=== PATIENT | female | born 1955 | race Caucasian/White ===

== ENCOUNTER 2023-11-13 07:01 | Inpatient (IN) | payer MEDICARE ==
[2023-11-08 12:30] LABS: BILIRUBIN,URINE NEGATIVE (Neg); CLARITY,URINE CLOUDY (Clear); COLOR,URINE YELLOW (Yellow); GLUCOSE, URINE NEGATIVE (Neg); KETONES,URINE NEGATIVE (Neg); LEUKOCYTE ESTERASE ,URINE TRACE (Neg); NITRITES, URINE NEGATIVE (Neg); OCCULT BLOOD,URINE NEGATIVE (Neg); PROTEIN,URINE NEGATIVE (Neg); UROBILINOGEN,URINE 0.2 E.U/dL (0.2-1.0)
[2023-11-08 12:31] LABS: BASOPHILS % (AUTO) 0.4 % (0-1); EOSINOPHILS # (AUTO) 0.2 X10'3 (0-0.9); EOSINOPHILS % (AUTO) 3.3 % (0-6); LYMPHOCYTES # (AUTO) 1.9 X10'3 (1.1-4.8); LYMPHOCYTES % (AUTO) 33.1 % (21-51); MEAN CORPUSCULAR HEMOGLOBIN 31.1 PG (27.0-31.0); MEAN CORPUSCULAR HGB CONC 33.5 g/dL (33.0-36.5); MEAN CORPUSCULAR VOLUME 92.9 FL (78-98); MEAN PLATELET VOLUME 7.6 FL (7.4-10.4); MONOCYTES # (AUTO) 0.4 X10'3 (0-0.9); MONOCYTES % (AUTO) 6.4 % (2-12); NEUTROPHILS # (AUTO) 3.3 X10'3 (1.8-7.7); NEUTROPHILS % (AUTO) 56.8 % (42-75); PRE OP HEMATOCRIT 36.2 % (35.0-45.0); PRE OP HEMOGLOBIN 12.1 g/dL (12.0-16.0); PRE OP PLATELET COUNT 206 X10'3 (140-440); PRE OP WHITE BLOOD COUNT 5.8 10'3 (4.8-10.8); RED CELL DISTRIBUTION WIDTH 14.6 % (11.5-14.5)
[2023-11-08 12:38] LABS: UA COLLECTION TYPE CLN CATCH MIDSTREAM
[2023-11-08 12:42] LABS: SQUAMOUS EPITHELIAL CELL,UR MODERATE /LPF (FEW)
[2023-11-08 12:43] LABS: MUCUS STRANDS FEW /LPF (Neg)
[2023-11-08 12:44] LABS: BACTERIA,URINE 1+ /HPF (Neg)
[2023-11-08 12:45] LABS: ALBUMIN 3.6 G/DL (3.4-5.0); ALBUMIN/GLOBULIN RATIO 0.9 (1.1-1.5); ALKALINE PHOSPHATASE 95 IU/L (46-116); BLOOD UREA NITROGEN 15 MG/DL (7-18); BUN/CREATININE RATIO 14.3 (10.0-20.0); CHLORIDE 109 MMOL/L (99-107); CREATININE 1.05 MG/DL (0.40-0.90); PRE OP ALT 17 U/L (30-65); PRE OP ANION GAP 6 (8-16); PRE OP AST 17 U/L (10-37); PRE OP BILIRUB, TOTAL 0.4 MG/DL (0.0-1.0); PRE OP GLUCOSE 107 MG/DL (70-104); PRE OP POTASSIUM 4.1 MMOL/L (3.4-5.1); PRE OP SODIUM 144 MMOL/L (135-145); TOTAL PROTEIN 7.5 G/DL (6.4-8.2); eGFR 52 ML/MIN
[2023-11-08 13:00] LABS: HEMOGLOBIN A1C 6.3 % (4.5-6.2)
[2023-11-08 14:30] LABS: PRE OP PROTIME 10.6 SECONDS (9.0-12.0)
[~2023-11-13] VITALS: Ht 167.6 cm; Wt 73.2 kg
[2023-11-13] VITALS (23 sets, daily range): BP systolic 120–167; BP diastolic 59–83; PULSE 50–89; RESP 13–18; TEMP 97.2–97.3; O2SAT 91–99
[2023-11-13] MEDS: cefazolin 2gm/D5W 100mL 100 ML IV ONE (05:30)
[2023-11-13] MEDS: tranexamic acid inj. 1,000 MG in normal saline IV soln 100ML IV ONE (05:30)
[2023-11-13] MEDS: cocaine 4% topical solution 4ml bottle ONE (05:49)
[2023-11-13] MEDS: tranexamic acid 100mg/ml inj. ONE (05:49)
[2023-11-13] MEDS: mupirocin 2% ointment 22GM ONE (05:50)
[2023-11-13] MEDS: LIDOcaine 1% w/EPI 1:100,000 inj. MDV 50 ML VIAL ONE (05:50)
[2023-11-13] MEDS: oxymetazoline 15 ML nasal spray NS ONE (05:50)
[~2023-11-13 07:01] MED LIST: ATOR20TA66 PO; CITA40TA16 PO; LANTUS SQ; METH-797 PO; OXYC1TAB17 PO
[2023-11-13] MEDS: BUPIVACAINE liposomal/PF 13.3 MG/ML vial IM ONE (07:07)
[2023-11-13] MEDS: BUPIVAcaine/PF 5 mg/ml 10ml ONE (07:07)
[2023-11-13] MEDS: ringers solution, lacted 1,000 ML IV SCH ×2 (08:14→16:04)
[2023-11-13] MEDS: famotidine 20mg tablet PO ONE (08:14)
[2023-11-13] MEDS ORDERED: ondansetron/PF 4mg/2ml inj IV PRN ×2 (09:00→10:50)
[2023-11-13] MEDS ORDERED: labetalol 20mg/4ml (5mg/ml) syringe IV PRN (09:00)
[2023-11-13] MEDS ORDERED: fentaNYL/PF 50MCG/1 ML 2ML syringe IV PRN ×2 (09:00)
[2023-11-13] MEDS ORDERED: hydrALAZINE 20mg/ml inj. IV PRN (09:00)
[2023-11-13] MEDS ORDERED: morphine 2 MG/ML inj. syringe IV PRN (09:00)
[2023-11-13] MEDS ORDERED: morphine 4 MG/ML inj SYRINge IV PRN (09:00)
[2023-11-13] MEDS: vancomycin 1,000mg inj ONE ×2 (10:07→10:38)
[2023-11-13] MEDS: methylene blue (5mg/ml) 50mg/10ml ampul IV ONE ×2 (10:07→12:56)
[2023-11-13] MEDS: gelatin sponge, absorbable (Gelfoam 100) sponge TP ONE (10:09)
[2023-11-13] MEDS: Thrombin (Bovine) 5,000 unit vial TP ONE (10:09)
[2023-11-13] MEDS ORDERED: sevoflurane 250ml liquid IH ONE (10:43)
[2023-11-13] MEDS ORDERED: acetaminophen 325mg tablet PO PRN (10:50)
[2023-11-13] MEDS ORDERED: oxyCODONE IR 5mg (immed. release) tablet PO PRN (10:50)
[2023-11-13] MEDS: potassium cl 20mEq in 1/2 NS 1,000 ML IV SCH (10:50)
[2023-11-13] MEDS ORDERED: bisacodyl 10mg suppository rectal RC PRN (10:50)
[2023-11-13] MEDS ORDERED: magnesium hydroxide 30ml (MOM) UD suspension PO PRN (10:50)
[2023-11-13] MEDS ORDERED: diphenhydrAMINE 25mg capsule PO PRN (10:50)
[2023-11-13] MEDS ORDERED: naloxone 0.4 mg/ml inj IV PRN (10:50)
[2023-11-13] MEDS ORDERED: midazolam 1 mg/ML 2ml injection ONE (10:55)
[2023-11-13] MEDS ORDERED: fentaNYL/PF 50MCG/1 ML 2ML syringe ONE ×2 (10:55→13:21)
[2023-11-13] MEDS ORDERED: ondansetron/PF 4mg/2ml inj ONE (11:19)
[2023-11-13] MEDS ORDERED: LIDOcaine 2% (20mg/ml) 5ml vial ONE (11:19)
[2023-11-13] MEDS ORDERED: acetaminophen 1,000mg/100ml IV 100 ML IV ONE (11:19)
[2023-11-13] MEDS ORDERED: propofol inj 20 ML IV ONE (11:19)
[2023-11-13] MEDS ORDERED: dexamethasone sod phosphate 4mg/ml inj. ONE (11:30)
[2023-11-13] MEDS: vancomycin 1,000mg inj IVT ONE (13:44)
[2023-11-13] MEDS ORDERED: dextrose 50%-water 50ml dispensing syringe IV PRN ×2 (16:45)
[2023-11-13] MEDS ORDERED: DEXTROSE 15 GM of carb/4 tabs (each vial/BOTTLE has 4 tablets) PO PRN ×2 (16:45)
[2023-11-13] MEDS ORDERED: glucagon, human recombinant 1mg kit SUBCUT PRN (16:45)
[2023-11-13] MEDS ORDERED: cefazolin 2gm/D5W 100mL 100 ML IV SCH (19:00)
[2023-11-13] MEDS: Methocarbamol 500 MG TABLET PO SCH (20:00)
[2023-11-13] MEDS: cefazolin 2gm/D5W 100mL 100 ML IV SCH (21:12)
[2023-11-13] MEDS: INSULIN LISPRO 100 UNIT/ML INSULN.PEN MULTI-DOSE SQ SCH (22:54)
[2023-11-13] MEDS: insulin glargine (Lantus) pen - multi-dose SQ SCH (22:55)
[2023-11-14] VITALS (7 sets, daily range): BP systolic 113–151; BP diastolic 62–70; PULSE 74–88; RESP 15–18; TEMP 96.9–98.6; O2SAT 94–97
[2023-11-14 07:04] LABS: BASOPHILS % (AUTO) 0.1 % (0-1); EOSINOPHILS % (AUTO) 0 % (0-6); HEMOGLOBIN 10.4 g/dl (12.0-16.0); LYMPHOCYTES # (AUTO) 1.5 X10'3 (1.1-4.8); MEAN CORPUSCULAR HEMOGLOBIN 30.2 PG (27.0-31.0); MEAN CORPUSCULAR HGB CONC 32.4 g/dL (33.0-36.5); MEAN CORPUSCULAR VOLUME 93.2 FL (78-98); MEAN PLATELET VOLUME 7.9 FL (7.4-10.4); MONOCYTES # (AUTO) 0.7 X10'3 (0-0.9); MONOCYTES % (AUTO) 7.7 % (2-12); NEUTROPHILS # (AUTO) 6.5 X10'3 (1.8-7.7); NEUTROPHILS % (AUTO) 75.2 % (42-75); PLATELET COUNT 168 X10'3 (140-440); RED BLOOD COUNT 3.43 X10'6 (4.20-5.60); RED CELL DISTRIBUTION WIDTH 14.6 % (11.5-14.5); WHITE BLOOD COUNT 8.7 X10'3 (4.5-11.0)
[2023-11-14 07:26] LABS: ALANINE AMINOTRANSFERASE 16 U/L (12-78); ALBUMIN 2.7 G/DL (3.4-5.0); ALBUMIN/GLOBULIN RATIO 0.8 (1.1-1.5); ALKALINE PHOSPHATASE 73 IU/L (46-116); ANION GAP 5 (8-16); ASPARTATE AMINO TRANSFERASE 18 U/L (10-37); BILIRUBIN,TOTAL 0.2 MG/DL (0.1-1.0); BLOOD UREA NITROGEN 18 MG/DL (7-18); CALCIUM 8.9 MG/DL (8.5-10.1); CHLORIDE 109 MMOL/L (99-107); GLUCOSE 181 MG/DL (70-104); POTASSIUM 4.6 MMOL/L (3.5-5.1); SODIUM 142 MMOL/L (135-145); TOTAL CARBON DIOXIDE 28.1 MMOL/L (24-32); TOTAL PROTEIN 6.1 G/DL (6.4-8.2); eCRCL 50 ML/MIN; eGFR 55 ML/MIN
[2023-11-14] MEDS: aspirin 325mg tablet PO SCH (08:32)
[2023-11-14] MEDS: citalopram 20mg tablet PO SCH (08:33)
[2023-11-14] MEDS: atorvastatin 20mg tablet PO SCH (08:34)
[2023-11-14] MEDS ORDERED: insulin glargine (Lantus) pen - multi-dose SQ SCH (08:52)
[2023-11-14] MEDS ORDERED: ASPI-1 PO (14:14)
[2023-11-14] MEDS: oxyCODONE/APAP 10/325mg tablet PO PRN (14:17)
[2023-11-29] MEDS ORDERED: ASPI-1264 PO (10:49)
== END 2023-11-14 16:34 | disposition home or self-care (01) | DRG 483 ==
LOC: ORTHO 4S 07:01 → PAS 07:01 → EDSTATUS 10:00 → ORTHO 4S 10:46 → PAS 10:46
PROVIDERS: ADMIT Specialist; ATTEND Specialist
PROC: 0LS40ZZ Reposition Left Upper Arm Tendon, Open Approach (ICD-10-PCS; 2023-11-13)
PROC: 3E0T3BZ Introduction of Anesthetic Agent into Peripheral Nerves and Plexi, Percutaneous Approach (ICD-10-PCS; 2023-11-13)
PROC: 3E0T33Z Introduction of Anti-inflammatory into Peripheral Nerves and Plexi, Percutaneous Approach (ICD-10-PCS; 2023-11-13)
PROC: 0RRK00Z Replacement of Left Shoulder Joint with Reverse Ball and Socket Synthetic Substitute, Open Approach (ICD-10-PCS; principal; 2023-11-13 10:43)
DX: S42.202A Unspecified fracture of upper end of left humerus, initial encounter for closed fracture (principal); X58.XXXD Exposure to other specified factors, subsequent encounter; E11.9 Type 2 diabetes mellitus without complications; G89.29 Other chronic pain; M54.50 Low back pain, unspecified; F32.A Depression, unspecified; F41.9 Anxiety disorder, unspecified; E78.5 Hyperlipidemia, unspecified; W18.39XD Other fall on same level, subsequent encounter; Y92.89 Other specified places as the place of occurrence of the external cause; M65.812 Other synovitis and tenosynovitis, left shoulder
CPT/HCPCS: 36415; 71046; 73030; 76000; 80053; 81001; 82948; 83036; 85025; 85610; 85730; 86885; 86900; 86901; 87081; 87088; 97116; 97161; 97530; A4565; A4615; A4618; A6449; A6455; A7000; C1713; C1776; C9290; G0378; J0131; J0330; J0665; J0690; J1100; J1815; J2250; J2405; J2704; J3010; J3370; J3480; J3490; J7120; Q9968